=== PATIENT | male | born 1980 | race American Indian/Alaskan Native ===

== ENCOUNTER 2020-07-11 15:09 | Emergency (ER) | payer SELFPAY ==
[2020-07-11 16:14] VITALS: BP 127/79
[2020-07-11] MEDS ORDERED: KETOROLAC 30 MG/1 ML INJ IM ONE (16:17)
--- NOTE | 2020-07-11 16:52 | XRay Report ---
LUMBAR SPINE 3 VIEWS INDICATION / CLINICAL INFORMATION: back pain fall. COMPARISON: None available. FINDINGS: VERTEBRAE: No acute fracture. No significant malalignment. DISC SPACES / FACET JOINTS:No significant abnormality. PARASPINAL SOFT TISSUES:No significant abnormality. ADDITIONAL FINDINGS: None. Signer Name: Ginette Salcido MD Signed: 07/11/2020 4:47 PM Workstation Name: [id number]
--- NOTE | 2020-07-11 16:52 | XRay Report ---
LEFT HIP 3 VIEWS INDICATION / CLINICAL INFORMATION: Left hip pain. COMPARISON: None available. FINDINGS: BONES/JOINT(S): No acute fracture or subluxation. No significant degenerative changes. SOFT TISSUES: No significant abnormality. ADDITIONAL FINDINGS: None. Signer Name: Zay Rendon MD Signed: 07/11/2020 4:47 PM Workstation Name: [id number]
--- NOTE | 2020-07-11 16:52 | XRay Report ---
LEFT WRIST RADIOGRAPH, 3 VIEWS. INDICATION / CLINICAL INFORMATION: trauma COMPARISON: None available. FINDINGS: BONES / JOINT(S): There is an acute comminuted fracture of the distal left radius with intra-articula r involvement. There is 1 to 2 mm intra-articular step-off in the region of the radial styloid. No ad ditional fracture. Carpal alignment is preserved. SOFT TISSUES: There is soft tissue swelling about the wrist. ADDITIONAL FINDINGS: None. IMPRESSION: Acute comminuted intra-articular left distal radial fracture. Signer Name: Andrea Plascencia MD Signed: 07/11/2020 4:48 PM Workstation Name: [id number]
--- NOTE | 2020-07-11 18:21 | Emergency Department Report ---
ED Fall HPI - General Chief Complaint: Fall Stated Complaint: LT WRIST INJURY/LADDER FALL Time Seen by Provider: 07/11/20 16:16 Source: patient Mode of arrival: Ambulatory - History of Present Illness Initial Comments: 40-year-old -[place] male presents to the emergency room complaining of left wrist back and left hip pain that started after he fell from a 6-8th feet off a ladder while at work. Patient denies any loss of consciousness denies any headache no nausea no vomiting no change of vision. Patient denies any urinary or bowel incontinent. 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 denies: headache, neck pain, numbness, weakness, chest paint, shortness of breath, abdominal pain, lightheaded, vertigo - Related Data Previous Rx's Medication Instructions Recorded Last Taken Type HYDROcodone/APAP 7.5-325 [[place] 1 each PO Q6HR PRN #12 tablet 07/11/20 Unknown Rx 7.5/325] Ibuprofen [Motrin 800 MG tab] 800 mg PO Q8HR PRN #30 tablet 07/11/20 Unknown Rx Allergies Allergy/AdvReac Type Severity Reaction Status Date / Time No Known Allergies Allergy Unverified 07/11/20 16:10 ED Review of Systems ROS: Stated complaint: LT WRIST INJURY/LADDER FALL Other details as noted in HPI ED Past Medical Hx - Past Medical History Previous Medical History?: No - Surgical History Past Surgical History?: No - Medications Home Medications: Home Medications Medication Instructions Recorded Confirmed Last Taken Type HYDROcodone/APAP 7.5-325 [[place] 1 each PO Q6HR PRN #12 tablet 07/11/20 Unknown Rx 7.5/325] Ibuprofen [Motrin 800 MG tab] 800 mg PO Q8HR PRN #30 tablet 07/11/20 Unknown Rx ED Physical Exam - General Limitations: No Limitations General appearance: alert, in no apparent distress - Head Head exam: Present: atraumatic, normocephalic - Eye Eye exam: Present: normal appearance, PERRL - ENT ENT exam: Present: mucous membranes moist - Neck Neck exam: Present: normal inspection - Respiratory Respiratory exam: Present: normal lung sounds bilaterally. Absent: respiratory distress, chest wall tenderness, accessory muscle use - Cardiovascular Cardiovascular Exam: Present: regular rate, normal rhythm. Absent: systolic murmur, diastolic murmur, rubs, gallop - GI/Abdominal GI/Abdominal exam: Present: soft. Absent: distended, tenderness - Expanded Upper Extremity Exam Left Shoulder Exam: Present: normal inspection, full ROM. Absent: tenderness, swelling Upper Arm exam: Present: normal inspection, full ROM. Absent: tenderness, swelling Elbow exam: Present: normal inspection, full ROM. Absent: tenderness, swelling Forearm Wrist exam: Present: tenderness, swelling Hand Wrist exam: Present: tenderness, swelling Vascular: Present: normal capillary refill. Absent: vascular compromise - Back Exam Back exam: Present: full ROM - Expanded Back Exam Expanded Back exam: Sciatic Notch Tenderness: Left - Neurological Exam Neurological exam: Present: alert, oriented X3 - Psychiatric Psychiatric exam: Present: normal affect, normal mood - Skin Skin exam: Present: warm, dry, intact, normal color. Absent: rash ED Course Vital Signs 07/11/20 16:11 Temperature 98.1 F Pulse Rate 75 Respiratory 18 Rate Blood Pressure 127/79 [Right] O2 Sat by Pulse 98 Oximetry ED Medical Decision Making - Radiology Data Radiology results: report reviewed Patient: RUSLNA PLASCENCIA MR#: [id number] : 1980 Acct:[id number] Age/Sex: 40 / M ADM Date: 07/11/20 Loc: ED Attending Dr: Ordering Physician: WILBER WISE Date of Service: 07/11/20 Procedure(s): XR wrist 3+V LT Accession Number(s): [id number] cc: WILBER WISE Fluoro Time In Minutes: LEFT WRIST RADIOGRAPH, 3 VIEWS. INDICATION / CLINICAL INFORMATION: trauma COMPARISON: None available. FINDINGS: BONES / JOINT(S): There is an acute comminuted fracture of the distal left radius with intra- articular involvement. There is 1 to 2 mm intra-articular step-off in the region of the radial styloid. No additional fracture. Carpal alignment is preserved. SOFT TISSUES: There is soft tissue swelling about the wrist. ADDITIONAL FINDINGS: None. IMPRESSION: Acute comminuted intra-articular left distal radial fracture. Signer Name: Isabela Plascencia MD Signed: 07/11/2020 4:48 PM Workstation Name: [id number] Transcribed By: BALA Dictated By: ISABELA PLASCENCIA MD Electronically Authenticated By: ISABELA PLASCENCIA MD Signed Date/Time: 07/11/201647 DD/ 44 TD/TT: Patient: RUSLAN PLASCENCIA MR#: [id number] : 1980 Acct:[id number] Age/Sex: 40 / M ADM Date: 07/11/20 Loc: ED Attending Dr: Ordering Physician: WILBER WISE Date of Service: 07/11/20 Procedure(s): XR spine lumbosacral 2-3V Accession Number(s): [id number] cc: WILBER WISE Fluoro Time In Minutes: LUMBAR SPINE 3 VIEWS INDICATION / CLINICAL INFORMATION: back pain fall. COMPARISON: None available. FINDINGS: VERTEBRAE: No acute fracture. No significant malalignment. DISC SPACES / FACET JOINTS:No significant abnormality. PARASPINAL SOFT TISSUES:No significant abnormality. ADDITIONAL FINDINGS: None. Signer Name: Ginette Salcido MD Signed: 07/11/2020 4:47 PM Workstation Name: [id number] Transcribed By: CRISTOFER Dictated By: Ginette Webster MD Electronically Authenticated By: Ginette Webster MD Signed Date/Time: 07/11/201646 DD/ 45 TD/TT: - Medical Decision Making 40-year-old -[place] male presents to the emergency room complaining of left wrist back and left hip pain that started after he fell from a 6-8th feet off a ladder while at work. Patient denies any loss of consciousness denies any headache no nausea no vomiting no change of vision. Patient denies any urinary or bowel incontinent. Volar splint ordered sling and pain medication. Referral to orthopedics. Critical care attestation.: If time is entered above; I have spent that time in minutes in the direct care of this critically ill patient, excluding procedure time. ED Disposition Clinical Impression: Fall, Distal radial fracture Disposition: - TO HOME OR SELFCARE Is pt being admited?: No Does the pt Need Aspirin: No Condition: Stable Instructions: Cast or Splint Care, Adult, [id number], Radial Head Fracture, [id number] Additional Instructions: X-ray shows you have a left radial fracture of your wrist. X-ray of your back and hip shows no fractures or subluxation or dislocations. Please take pain medication as needed is very important for you to follow-up with an orthopedic provider. I have listed 1 below for your convenience Prescriptions: Ibuprofen [Motrin 800 MG tab] 800 mg PO Q8HR PRN #30 tablet PRN Reason: Pain , Severe (7-10) HYDROcodone/APAP 7.5-325 [[place] 7.5/325] 1 each PO Q6HR PRN #12 tablet PRN Reason: Pain Referrals: BUCKY HE MD [Staff Physician] - 3-5 Days Forms: Work/School Release Form(ED)
== END 2020-07-11 19:28 | disposition home or self-care (01) ==
LOC: ED 15:09
DX: S52.502A Unspecified fracture of the lower end of left radius, initial encounter for closed fracture (principal); Z79.899 Other long term (current) drug therapy; W11.XXXA Fall on and from ladder, initial encounter; Y93.89 Activity, other specified; Y92.89 Other specified places as the place of occurrence of the external cause; Y99.8 Other external cause status
CPT/HCPCS: 72100; 73110; 73502; 96372; 99283; J1885